=== PATIENT | female | born 1995 | race Caucasian/White ===

== ENCOUNTER 2016-03-08 21:23 | Emergency (ER) | payer BC ==
[2016-03-08 21:42] VITALS: BP 118/76
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
== END 2016-03-08 22:11 | disposition home or self-care (01) ==
LOC: UCCORT 21:23
DX: S06.0X9A Concussion with loss of consciousness of unspecified duration, initial encounter (principal); S70.01XA Contusion of right hip, initial encounter; V47.0XXA Car driver injured in collision with fixed or stationary object in nontraffic accident, initial encounter; Y93.9 Activity, unspecified; Y92.9 Unspecified place or not applicable; Z88.3 Allergy status to other anti-infective agents; Z88.0 Allergy status to penicillin
CPT/HCPCS: 99211; G0463

== ENCOUNTER 2016-08-27 12:30 | Emergency (ER) | payer BC ==
[2016-08-27 13:17] VITALS: BP 121/83
--- NOTE | 2016-08-27 13:36 | UC ---
Ear Complaint HPI - HPI Summary HPI Summary: 21 yo female with bilateral ear pain for about a week bilateral sinus pressure and pain/nasal congestion upper teeth and gums sensitive feverish disequilibrium - History of Current Complaint Chief Complaint: UCEar Stated Complaint: RIGHT EAR COMPLAINT Hx Obtained From: Patient Hx Last Menstrual Period: 08/19/16 Onset/Duration: Gradual Onset, Lasting Days Severity Initially: Mild Severity Currently: Moderate Pain Intensity: 6 Pain Scale Used: 0-10 Numeric Associated Signs/Symptoms: Positive: Hearing Loss, URI Symptoms Related History: Prior ENT Surgery - pets (multiple sets) - Allergies/Home Medications Allergies/Adverse Reactions: Allergies Allergy/AdvReac Type Severity Reaction Status Date / Time Amoxicillin [From Augmentin] Allergy Rash Verified 08/27/16 13:17 Clavulanic Acid Allergy Rash Verified 08/27/16 13:17 [From Augmentin] Penicillins Allergy Rash Verified 08/27/16 13:17 Pollen Extract Allergy Congestion Verified 08/27/16 13:17 Home Medications: Home Medications Ibuprofen [Ibuprofen 200 MG] 600 mg PO PRN 08/27/16 [History] PMH/Surg Hx/FS Hx/Imm Hx Previously Healthy: Yes - Surgical History Surgical History: Yes Surgery Procedure, Year, and Place: Addnoidectomy. PE Tubes x2 - Family History Known Family History: Positive: Hypertension Negative: Diabetes - Social History Alcohol Use: Occasionally Alcohol Amount: today Substance Use Type: None Smoking Status (MU): Never Smoked Tobacco Review of Systems Constitutional: Fever Skin: Negative Eyes: Negative ENT: Dental Pain, Ear Ache, Nasal Discharge, Sinus Congestion, Sinus Pain/ Tenderness Respiratory: Negative Cardiovascular: Negative Gastrointestinal: Negative Genitourinary: Negative Motor: Negative Neurovascular: Negative Musculoskeletal: Negative Neurological: Negative Psychological: Negative All Other Systems Reviewed And Are Negative: Yes Physical Exam Triage Information Reviewed: Yes Appearance: Well-Appearing, No Pain Distress, Well-Nourished Vital Signs: Initial Vital Signs Temp 98.7 F 08/27/16 13:10 Pulse 95 08/27/16 13:10 Resp 16 08/27/16 13:10 BP 121/83 08/27/16 13:10 Pulse Ox 100 08/27/16 13:10 Vital Signs Reviewed: Yes ENT: Positive: Nasal congestion, Nasal drainage, TM bulging, Other: - bilateral max sinus tenderness. Negative: Hearing grossly normal, TM red, Tonsillar swelling, Tonsillar exudate, Trismus, Muffled/hoarse voice Neck: Positive: Supple, Nontender Respiratory: Positive: Lungs clear, Normal breath sounds, No respiratory distress, No accessory muscle use Cardiovascular: Positive: RRR, No Murmur, Pulses Normal Musculoskeletal Exam: Normal Musculoskeletal: Positive: ROM Intact Neurological Exam: Normal Neurological: Positive: Alert Psychological Exam: Normal Skin Exam: Normal Ear Complaint Course/Dx - Course Course Of Treatment: had rash with amox as child - Differential Dx/Diagnosis Provider Diagnoses: bilateral serous otitis media. acute sinusitis Discharge - Discharge Plan Condition: Stable Disposition: HOME Prescriptions: Cefuroxime Axetil [Ceftin 250 MG] 250 mg PO BID #20 tab Fluticasone NASAL SPRAY 50MCG* [Flonase NASAL SPRAY 50MCG*] 2 spray BOTH NARES DAILY #1 btl HYDROcodone/ACETAMIN 5-325 MG* [[place] 5-325 TAB*] 1 tab PO Q4H PRN #8 tab MDD 2 PRN Reason: Pain - Severe Patient Education Materials: Serous Otitis Media (ED), Sinusitis (ED) Referrals: Digna Asencio MD [Primary Care Provider] - Additional Instructions: see your MD next week as planned recheck for new or worsening symptoms
== END 2016-08-27 13:43 | disposition home or self-care (01) ==
LOC: UCCORT 12:30
DX: H65.93 Unspecified nonsuppurative otitis media, bilateral (principal); J01.90 Acute sinusitis, unspecified
CPT/HCPCS: 99212; G0463

== ENCOUNTER 2016-09-23 19:59 | Emergency (ER) | payer BC ==
[2016-09-23 20:12] VITALS: BP 117/77
[2016-09-23] MEDS ORDERED: predniSONE TAB* 20 MG PO ONE (20:48)
--- NOTE | 2016-09-23 20:56 | UC ---
Ear Complaint HPI - HPI Summary HPI Summary: ear pressure has recurred x 2weeks allergies bothering her no vertigo - History of Current Complaint Chief Complaint: UCEar Stated Complaint: EAR COMPLAINT Time Seen by Provider: 09/23/16 20:42 Hx Obtained From: Patient Hx Last Menstrual Period: 09/15/16 Onset/Duration: Gradual Onset, Lasting Weeks Severity Initially: Mild Severity Currently: Mild Pain Intensity: 3 Pain Scale Used: 0-10 Numeric Associated Signs/Symptoms: Positive: Hearing Loss Related History: Seasonal Allergies, Prior ENT Surgery - Allergies/Home Medications Allergies/Adverse Reactions: Allergies Allergy/AdvReac Type Severity Reaction Status Date / Time Amoxicillin [From Augmentin] Allergy Rash Verified 09/23/16 20:07 Clavulanic Acid Allergy Rash Verified 09/23/16 20:07 [From Augmentin] Penicillins Allergy Rash Verified 09/23/16 20:07 Pollen Extract Allergy Congestion Verified 09/23/16 20:07 PMH/Surg Hx/FS Hx/Imm Hx Previously Healthy: Yes - Surgical History Surgical History: Yes Surgery Procedure, Year, and Place: Addnoidectomy. PE Tubes x2 - Family History Known Family History: Positive: Hypertension Negative: Diabetes - Social History Alcohol Use: None Alcohol Amount: today Substance Use Type: None Smoking Status (MU): Never Smoked Tobacco Review of Systems Constitutional: Negative Skin: Negative Eyes: Negative ENT: Ear Ache, Nasal Discharge, Sinus Congestion Respiratory: Negative Cardiovascular: Negative Gastrointestinal: Negative Genitourinary: Negative Motor: Negative Neurovascular: Negative Musculoskeletal: Negative Neurological: Negative Psychological: Negative All Other Systems Reviewed And Are Negative: Yes Physical Exam Triage Information Reviewed: Yes Appearance: Well-Appearing, No Pain Distress, Well-Nourished Vital Signs: Initial Vital Signs Temp 98.3 F 09/23/16 20:08 Pulse 84 09/23/16 20:08 Resp 16 09/23/16 20:08 BP 117/77 09/23/16 20:08 Pulse Ox 99 09/23/16 20:08 Eyes: Positive: Conjunctiva Clear ENT: Positive: Hearing grossly normal, Nasal congestion, Nasal drainage, TM bulging. Negative: TMs normal, TM red, Tonsillar swelling, Tonsillar exudate, Trismus, Muffled/hoarse voice Neck: Positive: Supple, Nontender, No Lymphadenopathy Respiratory: Positive: Lungs clear, Normal breath sounds, No respiratory distress, No accessory muscle use Cardiovascular: Positive: RRR, No Murmur Musculoskeletal: Positive: ROM Intact, No Edema Neurological: Positive: Alert Psychological Exam: Normal Skin Exam: Normal Ear Complaint Course/Dx - Differential Dx/Diagnosis Provider Diagnoses: serous otitis media Discharge - Discharge Plan Condition: Stable Disposition: HOME Prescriptions: Prednisone [Deltasone] 20 - 40 mg PO DAILY #13 tab Patient Education Materials: Serous Otitis Media (ED) Referrals: Terri Magallon MD [Primary Care Provider] - 2 Weeks Additional Instructions: afrin nasal spray 2 sprays each nostril 3x day for three days
== END 2016-09-23 21:04 | disposition home or self-care (01) ==
LOC: UCCORT 19:59
DX: H65.90 Unspecified nonsuppurative otitis media, unspecified ear (principal)
CPT/HCPCS: 99212; G0463; J7512

== ENCOUNTER 2016-10-27 10:44 | Emergency (ER) | payer BC ==
[2016-10-27 11:20] VITALS: BP 120/86
--- NOTE | 2016-10-27 11:52 | UC ---
UC General HPI - HPI Summary HPI Summary: Patient has been on Nuvaring for 6 years, never had breakthrough bleeding till this week, she is bloated, nauseated and bleeding. - History of Current Complaint Chief Complaint: UCGU Stated Complaint: ABNORMAL MENSES Time Seen by Provider: 10/27/16 11:18 Hx Obtained From: Patient Hx Last Menstrual Period: 10/04/16 Onset/Duration: Sudden Onset, Lasting Days Timing: Constant Onset Severity: Mild Current Severity: Mild - Allergy/Home Medications Allergies/Adverse Reactions: Allergies Allergy/AdvReac Type Severity Reaction Status Date / Time Amoxicillin [From Augmentin] Allergy Rash Verified 10/27/16 11:19 Clavulanic Acid Allergy Rash Verified 10/27/16 11:19 [From Augmentin] Penicillins Allergy Rash Verified 10/27/16 11:19 Pollen Extract Allergy Congestion Verified 10/27/16 11:19 PMH/Surg Hx/FS Hx/Imm Hx Previously Healthy: Yes - Surgical History Surgical History: Yes Surgery Procedure, Year, and Place: Addnoidectomy. PE Tubes x2 - Family History Known Family History: Positive: Hypertension Negative: Diabetes - Social History Alcohol Use: None Alcohol Amount: today Substance Use Type: None Smoking Status (MU): Never Smoked Tobacco - Immunization History Most Recent Influenza Vaccination: no Review of Systems Constitutional: Negative Skin: Negative Eyes: Negative ENT: Negative Respiratory: Negative Cardiovascular: Negative Gastrointestinal: Abdominal Pain - bloating, cramping, nausea Genitourinary: Negative Motor: Negative Neurovascular: Negative Musculoskeletal: Negative Neurological: Negative Psychological: Negative All Other Systems Reviewed And Are Negative: Yes Physical Exam Triage Information Reviewed: Yes Appearance: Well-Appearing, Well-Nourished, Pain Distress Vital Signs: Initial Vital Signs Temp 98.4 F 10/27/16 11:15 Pulse 84 10/27/16 11:15 Resp 16 10/27/16 11:15 BP 120/86 10/27/16 11:15 Pulse Ox 100 10/27/16 11:15 Vital Signs Reviewed: Yes Eye Exam: Normal ENT Exam: Normal Dental Exam: Normal Neck exam: Normal Respiratory Exam: Normal Cardiovascular Exam: Normal Cardiovascular: Positive: RRR, No Murmur, Pulses Normal Abdomen Description: Positive: No Organomegaly, Soft, Other: - pelvic exam deferred by patient, mild tenderness on palpation over the lower abdomen with presure, neg rebound tenderness or psoas sign Bowel Sounds: Positive: Present Musculoskeletal Exam: Normal Neurological Exam: Normal Skin Exam: Normal Course/Dx - Course Course Of Treatment: hx obtained, exam performed ,meds reviewed, UA pos for blood, was negative - Differential Dx - Multi-Symptom Provider Diagnoses: dysfunctional uterine bleeding Discharge - Discharge Plan Condition: Stable Disposition: HOME Patient Education Materials: Dysfunctional Uterine Bleeding (ED) Referrals: Terri Magallon MD [Primary Care Provider] - Additional Instructions: 1. manage symtpoms with duarte, fluids, rest 2. Follow up with your [facility] Dr Romero this week.
== END 2016-10-27 11:58 | disposition home or self-care (01) ==
LOC: UCCORT 10:44
DX: N93.8 Other specified abnormal uterine and vaginal bleeding (principal); Z32.02 Encounter for pregnancy test, result negative; Z88.3 Allergy status to other anti-infective agents; Z88.0 Allergy status to penicillin
CPT/HCPCS: 81003; 84702; 99211; G0463

== ENCOUNTER 2017-03-28 17:22 | Emergency (ER) | payer BC ==
[2017-03-28 18:56] VITALS: BP 116/67
--- NOTE | 2017-03-28 19:40 | UC ---
FLU HPI - HPI Summary HPI Summary: sore throat fever fatigue and body aches for 3 days - History of Current Complaint Chief Complaint: UCGeneralIllness Stated Complaint: HAYNES STOMACH ACHE,ST FATIGUE Time Seen by Provider: 03/28/17 19:39 Hx Obtained From: Patient Hx Last Menstrual Period: 10/04/16 ?: No Onset/Duration: Sudden Onset, Lasting Days - 3 Severity Currently: Moderate Severity Initially: Moderate Pain Intensity: 7 Associated Signs & Symptoms: Positive: Fever, Sore Throat, Nasal Congestion, Headache Related Hx: Possible Flu/Infectious Exposure - Allergy/Home Medications Allergies/Adverse Reactions: Allergies Allergy/AdvReac Type Severity Reaction Status Date / Time MS Amoxicillin Allergy Rash Verified 03/28/17 18:56 [From Augmentin] MS Clavulanic Acid Allergy Rash Verified 03/28/17 18:56 [From Augmentin] MS Penicillins [Penicillins] Allergy Rash Verified 03/28/17 18:56 MS Pollen Extract Allergy Congestion Verified 03/28/17 18:56 [Pollen Extract] PMH/Surg Hx/FS Hx/Imm Hx Previously Healthy: Yes Psychological History: Depression - Surgical History Surgical History: Yes Surgery Procedure, Year, and Place: Addnoidectomy. PE Tubes x2 - Family History Known Family History: Positive: Hypertension Negative: Diabetes - Social History Occupation: Employed Part-time, Student Lives: With Family Alcohol Use: Occasionally Alcohol Amount: today Substance Use Type: None Smoking Status (MU): Never Smoked Tobacco - Immunization History Most Recent Influenza Vaccination: no Review of Systems Constitutional: Fever, Chills, Fatigue Skin: Negative Eyes: Negative ENT: Sore Throat Respiratory: Cough Cardiovascular: Negative Gastrointestinal: Negative Genitourinary: Negative Motor: Negative Neurovascular: Negative Musculoskeletal: Arthralgia, Myalgia Neurological: Headache Psychological: Negative Is Patient Immunocompromised?: No All Other Systems Reviewed And Are Negative: Yes Physical Exam Triage Information Reviewed: Yes Appearance: Well-Nourished, Ill-Appearing - mild, Pain Distress - mild Vital Signs: Initial Vital Signs Temp 99.1 F 03/28/17 18:52 Pulse 94 03/28/17 18:52 Resp 14 03/28/17 18:52 BP 116/67 03/28/17 18:52 Pulse Ox 100 03/28/17 18:52 Vital Signs Reviewed: Yes Eye Exam: Normal Eyes: Positive: Conjunctiva Clear ENT Exam: Normal ENT: Positive: Normal ENT inspection, Hearing grossly normal, Pharyngeal erythema, Nasal congestion, Nasal drainage, TMs normal. Negative: Trismus, Muffled voice, Hoarse voice, Dental tenderness, Sinus tenderness, Uvula midline Dental Exam: Normal Neck exam: Normal Neck: Positive: Supple, Nontender, No Lymphadenopathy Respiratory Exam: Normal Respiratory: Positive: Chest non-tender, Lungs clear, Normal breath sounds, No respiratory distress, No accessory muscle use Cardiovascular Exam: Normal Cardiovascular: Positive: RRR, No Murmur, Pulses Normal, Brisk Capillary Refill Musculoskeletal Exam: Normal Musculoskeletal: Positive: Strength Intact, ROM Intact, No Edema Neurological Exam: Normal Neurological: Positive: Alert, Muscle Tone Normal Psychological Exam: Normal Skin Exam: Normal Diagnostics - Laboratory Diagnostic Studies Completed/Ordered: Influenza A/B (-) RST (-) Flu Course/Dx - Course Course Of Treatment: lab studies for [place], increase fluids rest, tylenol, ibuprofen follow with pcp - Differential Dx/Diagnosis Provider Diagnoses: Viral Pharyngitis Discharge - Discharge Plan Condition: Stable Disposition: HOME Patient Education Materials: Acetaminophen (By mouth), Ibuprofen (By mouth), Mononucleosis (ED), Pharyngitis (ED), Viral Syndrome (ED) Referrals: Terri Magallon MD [Primary Care Provider] - If Needed
[2017-03-29 13:45] LABS: Hematocrit 40 % (35-47); Hemoglobin 13.4 g/dl (12.0-16.0); Mean Corpuscular HGB Conc 34 g/dl (31-36); Mean Corpuscular Hemoglobin 29 pg (27-31); Mean Corpuscular Volume 86 fL (80-97); Mean Platelet Volume 9 um3 (7.4-10.4); Platelet Count 207 10^3/ul (150-450); Red Blood Count 4.63 10^6/ul (4.0-5.4); Red Cell Distribution Width 14 % (10.5-15); White Blood Count 8.7 10^3/ul (3.5-10.8)
[2017-03-29 14:05] LABS: Monocytes % 16 % (0-13)
== END 2017-03-28 20:50 | disposition home or self-care (01) ==
LOC: UCCORT 17:22
DX: J02.8 Acute pharyngitis due to other specified organisms (principal); Z72.89 Other problems related to lifestyle
CPT/HCPCS: 36415; 85025; 85060; 86308; 87502; 87651; 99211; G0463

== ENCOUNTER 2017-06-21 14:35 | Emergency (ER) | payer BC ==
[2017-06-21 15:19] VITALS: BP 115/69
--- NOTE | 2017-06-21 16:20 | UC ---
Throat Pain/Nasal [place] HPI - HPI Summary HPI Summary: 22 y/o female presents to the urgent care c/o sore throat, HAYNES, nasal congestion since yesterday. Pt reports she has Hx of recurrent strep pharyngitis. She states swollen gland and pain w/ swallowing is 7/10 w/ chills, sweats and fatigue. Pt has taken Advil PO this morning to alleviate symptoms. Pt deneis Haynes , SOB, cough, chest pain, abdominal pain, N/V/D, or rash. Pt doesn't recall any sick contacts. - History of Current Complaint Chief Complaint: UCGeneralIllness Stated Complaint: SORE THROAT Time Seen by Provider: 06/21/17 16:05 Hx Obtained From: Patient Hx Last Menstrual Period: ~06/14/17 but irregular since d/cing Nuvaring ?: No Onset/Duration: Gradual Onset, Lasting Days - yesterday, Worse Since - this morning Severity: Moderate Pain Intensity: 7 Pain Scale Used: 0-10 Numeric Cough: None Associated Signs & Symptoms: Positive: Dysphagia, Nasal Discharge - Epiglottits Risk Factors Epiglottis Risk Factors: Negative - Allergies/Home Medications Allergies/Adverse Reactions: Allergies Allergy/AdvReac Type Severity Reaction Status Date / Time amoxicillin Allergy Rash Verified 06/21/17 15:14 clavulanic acid Allergy Rash Verified 06/21/17 15:14 lactose Allergy Bloating Verified 06/21/17 15:14 Penicillins Allergy Rash Verified 06/21/17 15:14 pollen extracts Allergy Watery Verified 06/21/17 15:14 Eyes, Congestion, Itching Home Medications: Home Medications Albuterol HFA INHALER* [Ventolin HFA Inhaler*] 1 - 2 puff INH Q4H PRN 06/21/17 [ History Confirmed 06/21/17] PMH/Surg Hx/FS Hx/Imm Hx Previously Healthy: Yes Respiratory History: Asthma Psychological History: Anxiety, Depression - Surgical History Surgical History: Yes Surgery Procedure, Year, and Place: Addnoidectomy, PE Tubes x2 - Family History Known Family History: Positive: Hypertension Negative: Diabetes - Social History Occupation: Employed Full-time Lives: With Family Alcohol Use: Weekly Alcohol Amount: today Substance Use Type: Marijuana Substance Use Comment - Amount & Last Used: Occasionally Smoking Status (MU): Light Every Day Tobacco Smoker Amount Used/How Often: 03/14 PPD Length of Time of Smoking/Using Tobacco: Since Age 21 - Immunization History Most Recent Influenza Vaccination: no Review of Systems Constitutional: Chills, Fatigue Skin: Negative Eyes: Negative ENT: Sore Throat, Nasal Discharge Respiratory: Negative Cardiovascular: Negative Gastrointestinal: Negative Genitourinary: Negative Motor: Negative Neurovascular: Negative Musculoskeletal: Negative Neurological: Headache Psychological: Negative Is Patient Immunocompromised?: No All Other Systems Reviewed And Are Negative: Yes Physical Exam - Summary Physical Exam Summary: VITAL SIGNS: Reviewed. GENERAL: Patient is a well developed and nourished female who is sitting comfortable in the examining table. Patient is not in any acute respiratory distress. HEAD AND FACE: No signs of trauma. No ecchymosis, hematomas or skull depressions. No sinus tenderness. EYES: PERRLA, EOMI x 2, No injected conjunctiva, no nystagmus. No photophobia. EARS: Hearing grossly intact. Ear canals and tympanic membranes are within normal limits. MOUTH: Positive pharynx with erythema, mild exudates, palatal petechiae. B/L tonsillar enlargement with mildexudate. Uvula in midline. NECK: Supple, trachea is midline, Positive anterior cervical lymphadenopathy, no JVD, no carotid bruit, no c-spine tenderness, neck with full ROM. No meningeal signs, no Kernig's or brudzinskis signs. CHEST: Symmetric, no tenderness at palpation LUNGS: Clear to auscultation bilaterally. No wheezing or crackles. CVS: Regular rate and rhythm, S1 and S2 present, no murmurs or gallops appreciated. ABDOMEN: Soft, non-tender. No signs of distention. No rebound no guarding, and no masses palpated. Bowel sounds are normal. EXTREMITIES: FROM in all major joints, no edema, no cyanosis or clubbing. NEURO: Alert and oriented x 3. No acute neurological deficits. Speech is normal and follows commands. SKIN: Dry and warm Triage Information Reviewed: Yes Vital Signs: Initial Vital Signs Temp 99.1 F 06/21/17 15:10 Pulse 84 06/21/17 15:10 Resp 16 06/21/17 15:10 BP 115/69 06/21/17 15:10 Pulse Ox 100 06/21/17 15:10 Throat Pain/Nasal Course/Dx - Course Course Of Treatment: 22 y/o female presents to the urgent care c/o sore throat, HAYNES, nasal congestion since yesterday. Pt reports she has Hx of recurrent strep pharyngitis. She states swollen gland and pain w/ swallowing is 7/10 w/ chills , sweats and fatigue. Pt has taken Advil PO this morning to alleviate symptoms. Pt deneis Haynes , SOB, cough, chest pain, abdominal pain, N/V/D, or rash. Pt doesn't recall any sick contacts.Pt w/ pharyngitis on examination.Rapid strep ordered: result: positive. Strep pharyngitis. Pt PCN allergic. Pt Rx Z-anil PO and Ibuprofen PO for pain and swelling. PT Advised on hand washing to avoid spreading. Also advised to rest, eat well and avoid strenuous exercise. If symptoms do not improve or worsen advised to return to the urgent care or f/u with her PCP for further evaluation and treatment. PT understood and agreed w/ D /C instructions. - Differential Dx/Diagnosis Differential Diagnosis/HQI/PQRI: Laryngitis, Mononucleosis, Pharyngitis, Sinusitis, Tonsillitis, URI Provider Diagnoses: 1- Strep pharyngitis Discharge - Sign-Out/Discharge Documenting (check all that apply): Discharge/Admit/Transfer - D/C home - Discharge Plan Condition: Stable Disposition: HOME Prescriptions: Azithromyxin ANIL (NF) [Z-Anil (Zithromax) 250 mg tabs #6] 2 tab PO .TODAY, THEN 1 DAILY #6 tab Ibuprofen TAB* [Motrin TAB* 800 MG] 800 mg PO Q6H PRN #20 tab PRN Reason: Sore Throat Patient Education Materials: Strep Throat (ED) Referrals: Terri Magallon MD [Primary Care Provider] - 3 Days Additional Instructions: 1- Please take the full course of the antibiotic to avoid resistance. 2-Please take ibuprofen PO q6-8hrs prn as instructed after meals to alleviate pain and swelling. Increase fluid intake, eat well, rest and avoid strenuous exercise 3-If symptoms do not improve or worsen please return to the urgent care or f/u with your PCP for further evaluation and treatment. - Billing Disposition and Condition Condition: STABLE Disposition: HOME
== END 2017-06-21 16:18 | disposition home or self-care (01) ==
LOC: UCCORT 14:35
DX: J02.0 Streptococcal pharyngitis (principal); Z87.891 Personal history of nicotine dependence; Z88.0 Allergy status to penicillin; Z88.3 Allergy status to other anti-infective agents; Z88.8 Allergy status to other drugs, medicaments and biological substances
CPT/HCPCS: 87651; 99212; G0463

== ENCOUNTER 2018-08-21 17:37 | Emergency (ER) | payer BC ==
--- OUTSIDE RECORDS SUMMARY | 2018-08-21 17:47 | XMS REPORT | Continuity of Care Document ---
:1995 External Reference #:[id number] Author Name Sanju Torres MD Address [address] [place] [address] Care Team Providers Name Role Phone Terri Magallon MD Care Team Information Purchasing Manager/Sales Unavailable Terri Magallon MD Primary Care Physician Unavailable Payers Date Identification Numbers Payment Provider Subscriber Policy Number: [id number] BS [employer] Betty Shiraz PayID: [id number] [address] [address] [place] [address] Problems Active Problems Provider Date Allergic rhinitis due to pollen DEVORAH Vines Onset: 2016 Allergic rhinitis DEVORAH Vines Onset: 01/14/2017 Chronic allergic conjunctivitis DEVORAH Vines Onset: 2016 Exercise-induced asthma DEVORAH Vines Onset: 01/14/2017 Mild intermittent asthma RICHARD Sidhu Onset: 08/04/2018 Uncomplicated moderate persistent RICHARD Sidhu Onset: 01/04/2018 asthma Social History Type Date Description Comments Sex Unknown Home Environment Does not have an air conditioner Home Environment There is no basement Home Environment Does not use a dehumidifier Home Environment There are no draperies in the home Home Environment The floors are wood Home Environment The floors are carpeted Home Environment Uses electric heating Home Environment Uses baseboard heating Tobacco Use Start: Unknown Home is not smoke-free Pets 2 cats Pets Animals sleep in bedroom Occupation Student Tobacco Use Start: Unknown No Second Hand Smoke Exposure Tobacco Use Start: Unknown Light tobacco smoker (10 or fewer social cigarettes/day) Smoking Status Reviewed: 08/04/18 Light tobacco smoker (10 or fewer social cigarettes/day) Allergies, Adverse Reactions, Alerts Active Allergies Reaction Severity Comments Date Amoxicillin 01/14/2017 Penicillin 01/14/2017 Medications Active Medications SIG Qnty Indications Ordering Provider Date Ventolin HFA inhale 2 puffs by 18gm J45.990 Sanju Elam 01/14/2017 inhalation route MD Brian 108(90Base) mcg/Act q4 hours as needed Aerosol and 15 minutes prior to exercise. Nuvaring Unknown 0.12-0.015mg/24HR Ring Fluoxetine HCL Unknown 20mg Tablets History Medications Breo Ellipta inhale one puff 60units J45.40 Sanju Elam 01/04/2018 - once a day MD Brian 08/04/2018 200-25mcg/Inh Aerosol Xopenex HFA 2 puffs every 4 15gm J45.40 Sanju Elam 01/04/2018 - 45mcg/Act as needed MD Brian 02/03/2018 Aerosol Nasonex [place] 2 sprays 1units J30.1 Sanju Elam 01/14/2017 - 50mcg/Act in each nostril MD Brian 01/04/2018 Suspension by intranasal route once daily. Levocetirizine Take one tablet 30tabs J30.1 Sanju Elam 01/14/2017 - Dihydrochloride by mouth daily MD Brian 01/04/2018 5mg at bedtime Tablets Pazeo Instill 1 drop 1units H10.45 Sanju Elam 01/14/2017 - 0.7% Solution into affected MD Brian 01/04/2018 eye(s) by ophthalmic route once daily as needed Metronidazole Unknown - 500mg 01/04/2018 Tablets Afluria Preservative Unknown - Free 01/04/2018 0.5ml Josselin Valacyclovir HCL Unknown - 1gm 01/04/2018 Tablets Ibuprofen take 1 tablet Unknown - 800mg Tablets every 6 hours if 01/04/2018 needed for Sore Throat Azithromycin Jayson Pyle MD - 250mg 01/04/2018 Tablets Fluoxetine HCL take 1 capsule Unknown - 10mg by mouth once 01/04/2018 Capsules daily Valacyclovir HCL TK 1 T PO bid Unknown - 500mg 01/04/2018 Tablets Tramadol HCL Unknown - 50mg 01/04/2018 Tablets Sharobel Unknown - 0.35mg Tablets 01/04/2018 Oxycodone-Acetaminoph Jayson Pyle MD - en 01/04/2018 5-325mg Tablets Fluoxetine HCL Gagen, - 20mg DollyHOSSEIN 01/04/2018 Tablets Prednisone Jayson Pyle MD - 10mg Tablets 01/04/2018 Fluticasone NaunTerri mendez MD - Propionate 01/14/2017 50mcg/Act Suspension Paroxetine HCL Unknown - 40mg 01/04/2018 Tablets Vital Signs Date Vital Result Comment 08/04/2018 4:07pm BP Systolic 144 mmHg BP Diastolic 106 mmHg Height 65 inches 5'5" Weight 116.00 lb BMI (Body Mass Index) 19.3 kg/m2 Heart Rate 94 /min Respiratory Rate 17 /min Body Temperature 98.1 F O2 % BldC Oximetry 98 % 02/03/2018 4:24pm BP Systolic 112 mmHg BP Diastolic 68 mmHg Height 65 inches 5'5" Weight 116.00 lb BMI (Body Mass Index) 19.3 kg/m2 Heart Rate 80 /min Respiratory Rate 16 /min O2 % BldC Oximetry 98 % 01/04/2018 4:13pm BP Systolic 110 mmHg BP Diastolic 70 mmHg Height 65 inches 5'5" Weight 121.00 lb BMI (Body Mass Index) 20.1 kg/m2 Heart Rate 90 /min Respiratory Rate 14 /min Body Temperature 96.8 F O2 % BldC Oximetry 98 % 01/14/2017 11:16am Height 65 inches 5'5" Weight 116.00 lb BMI (Body Mass Index) 19.3 kg/m2 Heart Rate 82 /min Respiratory Rate 16 /min Body Temperature 95.4 F O2 % BldC Oximetry 99 % Results Test Date Facility Test Result H/L Range Note Order 08/04/2018 [facility] Nitric Oxide <pending> PFT Supplies <pending> PFT With Bronchodilator <pending> Procedures Date Code Description Status 08/04/2018 05016 Nitric Oxide Gas Determination Completed 08/04/2018 93866 Bronchodilation Responsiveness Spirometry Pre/Post Completed Bronchodil Adm 02/03/2018 19876 Nitric Oxide Gas Determination Completed 02/03/2018 03452 Nitric Oxide Gas Determination Completed 02/03/2018 87944 Bronchodilation Responsiveness Spirometry Pre/Post Completed Bronchodil Adm 02/03/2018 56472 Bronchodilation Responsiveness Spirometry Pre/Post Completed Bronchodil Adm 01/04/2018 85856 Bronchodilation Responsiveness Spirometry Pre/Post Completed Bronchodil Adm 01/04/2018 85179 Bronchodilation Responsiveness Spirometry Pre/Post Completed Bronchodil Adm 01/14/2017 49712 Nitric Oxide Gas Determination Completed 01/14/2017 40751 Allergy Tests Percutaneous W/ Allergenic Extracts Completed 01/14/2017 11718 Allergy Tests Percutaneous W/ Allergenic Extracts Completed 01/14/2017 05205 Bronchodilation Responsiveness Spirometry Pre/Post Completed Bronchodil Adm Encounters Type Date Location Provider Dx Diagnosis Office Visit 08/04/2018 3:30p RICHARD Campbell J30.1 Allergic rhinitis due to pollen J30.89 Other allergic rhinitis J45.20 Mild intermittent asthma, uncomplicated Office Visit 02/03/2018 3:30p RICHARD Campbell J30.1 Allergic rhinitis due to pollen J30.89 Other allergic rhinitis H10.45 Other chronic allergic conjunctivitis J45.40 Moderate persistent asthma, uncomplicated Office Visit 01/04/2018 4:00p RICHARD Campbell J30.1 Allergic rhinitis due to pollen J30.89 Other allergic rhinitis H10.45 Other chronic allergic conjunctivitis J45.990 Exercise induced bronchospasm J45.40 Moderate persistent asthma, uncomplicated Office Visit 01/14/2017 11:00a Abram Lee30.1 Allergic rhinitis RPA-C due to pollen J30.89 Other allergic rhinitis H10.45 Other chronic allergic conjunctivitis J45.990 Exercise induced bronchospasm Plan of Treatment Future Appointment(s):02/07/2019 4:00 pm - DEVORAH Vines at [facility]/04/2018 - RHONDA Sidhu.1 Allergic rhinitis due to ilxrblV97.89 Other allergic nrizgfnyK72.20 Mild intermittent asthma, uncomplicatedComments: Patient's PFT is within normal limits and exhaled nitric oxide is normal at 15 ppb. Patient to continue Ventolin for breakthrough chest symptoms and Brenda for breakthrough nasal symptoms. Saline nasal rinse and HEPA air filter may help decrease allergens. Warm salt water gargles may help postnasal drip. Environmental controls discussed. Recommend vitamin D, 2000 units, daily.Follow up:6 mlonths, no PFT
--- OUTSIDE RECORDS SUMMARY | 2018-08-21 17:47 | XMS REPORT | Continuity of Care Document ---
:1995 External Reference #:[id number] Author Name Felicita Ro Care Team Providers Name Role Phone Terri Magallon MD Care Team Information Executive Director Global Brand Marketing Unavailable Terri Magallon MD Primary Care Physician Unavailable Payers Date Identification Numbers Payment Provider Subscriber Policy Number: [id number] BS [employer] Betty Adlerkayleightu PayID: [id number] [address] [address] [place] [address] Problems Active Problems Provider Date Allergic rhinitis due to pollen DEVORAH Vines Onset: 2016 Allergic rhinitis DEVORAH Vines Onset: 01/14/2017 Chronic allergic conjunctivitis DEVORAH Vines Onset: 2016 Exercise-induced asthma DEVORAH Vines Onset: 01/14/2017 Uncomplicated moderate persistent [place] RICHARD Smith Onset: 01/04/2018 asthma Social History Type Date [...] or fewer social cigarettes/day) Smoking Status Reviewed: 02/03/18 Light tobacco smoker (10 or fewer social cigarettes/day) Allergies, Adverse Reactions, Alerts Active Allergies Reaction Severity Comments Date Amoxicillin 01/14/2017 Penicillin 01/14/2017 Medications Active Medications SIG Qnty Indications Ordering Provider Date Breo Ellipta inhale one puff 60units J45.40 Sanju Elam 01/04/2018 once a day MD Brian 200-25mcg/Inh Aerosol Ventolin HFA inhale 2 puffs by 18gm J45.990 Sanju Elam 01/14/2017 inhalation route MD Brian 108(90Base) mcg/Act q4 hours as Aerosol needed and 15 minutes prior to exercise. Nuvaring Unknown 0.12-0.015mg/24HR Ring Fluoxetine HCL Unknown 20mg Tablets History Medications Xopenex HFA 2 puffs every 4 15gm J45.40 Sanju Elam 01/04/2018 - 45mcg/Act as needed MD Brian 02/03/2018 Aerosol Nasonex [place] 2 sprays 1units J30.1 Sanju Elam 01/14/2017 - 50mcg/Act in each nostril MD Brian 01/04/2018 Suspension by intranasal route once daily. Levocetirizine Take one tablet 30tabs J30.1 Sanju Elam 01/14/2017 - Dihydrochloride by mouth daily MD Brian 01/04/2018 5mg at bedtime Tablets Pazeo Instill 1 drop 1units H10.45 Sanju Ealm 01/14/2017 - 0.7% Solution into affected MD [...] 01/04/2018 Tablets Tramadol HCL Unknown - 50mg Tablets 01/04/2018 Sharobel Unknown - 0.35mg Tablets 01/04/2018 Oxycodone-Acetaminophe Jayson Pyle MD - n 01/04/2018 5-325mg Tablets Fluoxetine HCL Gagen, - 20mg HOSSEIN Alberto 01/04/2018 Tablets Prednisone Jayson Pyle MD - 10mg Tablets 01/04/2018 Fluticasone Propionate NaunTerri mendez MD - 01/14/2017 50mcg/Act Suspension Paroxetine HCL Unknown - [...] F O2 % BldC Oximetry 99 % Procedures Date Code Description Status 02/03/2018 34510 Nitric Oxide Gas Determination Completed 02/03/2018 98369 Nitric Oxide Gas Determination Completed 02/03/2018 70379 Bronchodilation Responsiveness Spirometry Pre/Post Completed Bronchodil Adm 02/03/2018 90688 Bronchodilation Responsiveness Spirometry Pre/Post Completed Bronchodil Adm 01/04/2018 45931 Bronchodilation Responsiveness Spirometry Pre/Post Completed Bronchodil Adm 01/04/2018 13461 Bronchodilation Responsiveness Spirometry Pre/Post Completed Bronchodil Adm 01/14/2017 35116 Nitric Oxide Gas Determination Completed 01/14/2017 51985 Allergy Tests Percutaneous W/ Allergenic Extracts Completed 01/14/2017 50471 Allergy Tests Percutaneous W/ Allergenic Extracts Completed 01/14/2017 15379 Bronchodilation Responsiveness Spirometry Pre/Post Completed Bronchodil Adm Encounters Type Date Location Provider Dx Diagnosis Office Visit 02/03/2018 3:30p RICHARD Campbell J30.1 Allergic rhinitis due to pollen J30.89 Other allergic rhinitis H10.45 Other chronic allergic conjunctivitis J45.40 Moderate persistent asthma, uncomplicated Office Visit 01/04/2018 4:00p RICHARD Campbell J30.1 Allergic rhinitis due to pollen J30.89 Other allergic rhinitis H10.45 Other chronic allergic conjunctivitis J45.990 Exercise induced bronchospasm J45.40 Moderate persistent asthma, uncomplicated Office Visit 01/14/2017 11:00a Matt Herring J30.1 Allergic rhinitis RPA-C due to pollen J30.89 Other allergic rhinitis H10.45 Other chronic allergic conjunctivitis J45.990 Exercise induced bronchospasm Plan of Treatment 02/03/2018 - RICHARD SidhuJ30.1 Allergic rhinitis due to ntvxocF82.89 Other allergic ltjddtufV98.45 Other chronic allergic pypyikljpsuausM29.40 Moderate persistent asthma, uncomplicatedComments:Patient's PFT shows mild obstruction. Patient to continue Breo for prophylaxis of her lungs and Ventolin for breakthrough chest symptoms. Saline nasal rinse, cool mist humidifier and HEPA air filter will help. Patient encouraged to use rescue inhaler 15 minutes prior to exercise.Follow up:6 months, PFT and NIOX prior
[2018-08-21 17:55] VITALS: BP 128/92
--- NOTE | 2018-08-21 17:55 | UC ---
Lower Extremity/Ankle HPI - HPI Summary HPI Summary: Patient did a round off on pavement last night and landed on her left heel wrong , pain in the heel and in the medial side of her ankle. - History of Current Complaint Stated Complaint: LEFT ANKLE INJ Time Seen by Provider: 08/21/18 17:49 Hx Obtained From: Patient Hx Last Menstrual Period: ~06/14/17 but irregular since d/cing Nuvaring ?: No Onset/Duration: Sudden Onset, Lasting Hours Severity Initially: Moderate Severity Currently: Moderate Aggravating Factor(s): Standing, Ambulation Able to Bear Weight: No - Allergies/Home Medications Allergies/Adverse Reactions: Allergies Allergy/AdvReac Type Severity Reaction Status Date / Time amoxicillin Allergy Rash Verified 08/21/18 17:55 clavulanic acid Allergy Rash Verified 08/21/18 17:55 lactose Allergy Bloating Verified 08/21/18 17:55 Penicillins Allergy Rash Verified 08/21/18 17:55 pollen extracts Allergy Watery Verified 08/21/18 17:55 Eyes, Congestion, Itching Home Medications: Home Medications Etonogest/Eth.estradiol (Nf) [Nuvaring Vaginal Ring] 1 each VAGINAL DAILY [History Confirmed 08/21/18] Ibuprofen TAB* [Advil TAB*] 600 mg PO ONCE 08/21/18 [History Confirmed 08/21/18] PMH/Surg Hx/FS Hx/Imm Hx Previously Healthy: Yes - Surgical History Surgical History: Yes Surgery Procedure, Year, and Place: Addnoidectomy, PE Tubes x2 - Family History Known Family History: Positive: Hypertension Negative: Diabetes - Social History Alcohol Use: Weekly Alcohol Amount: today Substance Use Type: Marijuana Substance Use Comment - Amount & Last Used: Occasionally Smoking Status (MU): Light Every Day Tobacco Smoker Amount Used/How Often: 03/14 PPD Length of Time of Smoking/Using Tobacco: Since Age 21 - Immunization History Most Recent Influenza Vaccination: no Review of Systems All Other Systems Reviewed And Are Negative: Yes Musculoskeletal: Positive: Arthralgia, Decreased ROM, Edema, Myalgia Is Patient Immunocompromised?: No Physical Exam Triage Information Reviewed: Yes Appearance: Well-Appearing, Well-Nourished, Pain Distress Vital Signs Reviewed: Yes Eye Exam: Normal ENT Exam: Normal Dental Exam: Normal Neck exam: Normal Respiratory Exam: Normal Cardiovascular Exam: Normal Abdominal Exam: Normal Bowel Sounds: Positive: Present Musculoskeletal: Positive: Strength Limited @, ROM Limited @, Edema @ - left ankle, pain radiates up the medial aspect of left leg, very tender over the calcaneous and medial maleolus., mild swelling Neurological Exam: Normal Psychological Exam: Normal Skin Exam: Normal Lower Extremity Course/Dx - Course Course Of Treatment: hx obtained, exam performed ,meds reviewed, xray obtained. - Differential Dx/Diagnosis Differential Diagnosis/HQI/PQRI: Contusion, Dislocation, Fracture (Closed), Sprain, Strain Provider Diagnosis: Left calcaneal fracture Discharge - Sign-Out/Discharge Documenting (check all that apply): Patient Departure All imaging exams completed and their final reports reviewed: No - Discharge Plan Condition: Stable Disposition: HOME Patient Education Materials: Calcaneal Fracture (ED) Referrals: Terri Magallon MD [Primary Care Provider] - Corby Hairston MD [Medical Doctor] - Additional Instructions: 1. no weight bearing till cleared by ortho 2. Follow up with Dr Hairston or orthopedic of your choice after the weekend 3. Ibuprofen or Tylenol for pain and fever. - Billing Disposition and Condition Condition: STABLE Disposition: Home - Attestation Statements Provider Attestation: Per institutional requirements, I have reviewed the chart, however, I was not consulted specifically or made aware of this patient by the midlevel provider. I did not personally evaluate, interact with , or disposition this patient.
== END 2018-08-21 19:45 | disposition home or self-care (01) ==
LOC: UCCORT 17:37
DX: S92.002A Unspecified fracture of left calcaneus, initial encounter for closed fracture (principal); X50.0XXA Overexertion from strenuous movement or load, initial encounter; Y93.43 Activity, gymnastics; Y92.9 Unspecified place or not applicable; F17.210 Nicotine dependence, cigarettes, uncomplicated
CPT/HCPCS: 99213; G0463